=== PATIENT | male | born 1975 | race Two or more races ===

== ENCOUNTER 2024-02-24 14:00 | Emergency (ER) | payer SELFPAY ==
[~2024-02-24] VITALS: Ht 177.8 cm; Wt 84.0 kg
[2024-02-24 15:26] VITALS: BP 127/88; PULSE 71; RESP 16; TEMP 99; O2SAT 98
[2024-02-24] MEDS: LIDOCAINE 1% HCL (LOCAL ANESTH.) INJ 20ML MDV IJ ONE (15:52)
[2024-02-24] MEDS: TETANUS-DIPTH-ACEL PERTUSSIS 0.5ML SYR Tdap IM ONE (15:55)
[2024-02-24] MEDS ORDERED: CEPH500C PO (16:06)
== END 2024-02-24 16:11 | disposition home or self-care (01) ==
LOC: ER 14:00
DX: S81.811A Laceration without foreign body, right lower leg, initial encounter (principal); Z88.8 Allergy status to other drugs, medicaments and biological substances; W45.0XXA Nail entering through skin, initial encounter; Y93.89 Activity, other specified; Y92.89 Other specified places as the place of occurrence of the external cause; Y99.8 Other external cause status
CPT/HCPCS: 12002; 90471; 90715

== ENCOUNTER 2024-03-15 08:10 | Emergency (ER) | payer MEDICAID, OTHER ==
[~2024-03-15] VITALS: Ht 177.8 cm; Wt 79.6 kg
[~2024-03-15 08:10] MED LIST: CEPH500C PO
[2024-03-15 08:33] VITALS: BP 119/62; PULSE 60; RESP 16; TEMP 97.2; O2SAT 99
== END 2024-03-15 08:41 | disposition home or self-care (01) ==
LOC: ER 08:10
DX: S81.811D Laceration without foreign body, right lower leg, subsequent encounter (principal); X58.XXXD Exposure to other specified factors, subsequent encounter